=== PATIENT | female | born 1965 | race Caucasian/White ===

== ENCOUNTER 2017-09-26 21:45 | Emergency (ER) | payer OTHER, SELFPAY | END 2017-09-27 | disposition home or self-care (01) | PROVIDERS: Emergency Provider Emergency Medicine; Visit Provider Emergency Medicine | DX: T78.40XA Allergy, unspecified, initial encounter (principal) | CPT/HCPCS: 99282 ==

== ENCOUNTER → 2018-01-24 10:51 | Outpatient (CLI) | payer OTHER, SELFPAY ==
--- NOTE | 2018-01-24 | DI.MG.S_ITS ---
BILATERAL DIGITAL SCREENING MAMMOGRAM 3D/2D WITH CAD: 01/24/2018 CLINICAL: Routine screening. Family history of breast cancer. Comparison is made to exams dated: 05/07/2016 mammogram and 03/27/2015 mammogram - [facility]. There are scattered fibroglandular elements in both breasts. Current study was also evaluated with a Computer Aided Detection (CAD) system. There is an asymmetry in the left breast middle depth lateral region seen on the craniocaudal view only. There is possible architectural distortion associated with the asymmetry as seen on tomosynthesis slice 39/64 of the C view. No other significant masses, calcifications, or other findings are seen in either breast. IMPRESSION: INCOMPLETE: NEEDS ADDITIONAL IMAGING EVALUATION The asymmetry in the left breast is indeterminate. Additional views with possible ultrasound are recommended. This exam was interpreted at Station ID: [id number]. NOTE: For mammograms, a report in lay terms will be sent to the patient. Approximately 15% of breast malignancies will not be visualized mammographically. In the management of a palpable breast mass, a negative mammogram must not discourage biopsy of a clinically suspicious lesion. Electronically Signed By: Donis Hidalgo M.D. ecl/:01/25/2018 10:12:09 letter sent: Additional Imaging Needed ACR BI-RADS Category 0: Incomplete 3340F
== END ==
PROVIDERS: Visit Provider Nurse Practitioner Family
DX: Z12.31 Encounter for screening mammogram for malignant neoplasm of breast (principal); Z80.3 Family history of malignant neoplasm of breast
CPT/HCPCS: 77063; 77067

== ENCOUNTER → 2018-02-16 14:41 | Outpatient (CLI) | payer OTHER, SELFPAY ==
--- NOTE | 2018-02-16 | DI.MG.S_ITS ---
UNILATERAL LEFT DIGITAL DIAGNOSTIC MAMMOGRAM 3D/2D WITH ADDITIONAL VIEWS: 02/16/2018 CLINICAL: Additional evaluation requested from prior study. Comparison is made to exams dated: 01/24/2018 mammogram - [facility], 05/07/2016 mammogram, and 03/27/2015 mammogram - [facility]. There are scattered fibroglandular elements in the left breast. Previously identified asymmetry in the left breast middle depth lateral region seen on the craniocaudal view only of comparison screening mammograms persists with additional views. There is persistent possible architectural distortion associated with the asymmetry as seen on the [facility] spot tomosynthesis slice 36/56 of the [facility] view. No other significant masses, calcifications, or other findings are seen in the breast. Previously identified of comparison screening mammograms persists with additional views. IMPRESSION: INCOMPLETE: NEEDS ADDITIONAL IMAGING EVALUATION Previously identified asymmetry with possible architectural distortion in the left breast middle depth lateral region seen on the craniocaudal view only of comparison screening mammograms persists with additional views. A targeted ultrasound is recommended for further evaluation, and has been scheduled for February 20, 2018. The patient is aware of this appointment for follow-up ultrasound per the construction equipment technician. This exam was interpreted at Station ID: [id number]. NOTE: For mammograms, a report in lay terms will be sent to the patient. Approximately 15% of breast malignancies will not be visualized mammographically. In the management of a palpable breast mass, a negative mammogram must not discourage biopsy of a clinically suspicious lesion. Electronically Signed By: Donis Hidalgo M.D. ecl/:02/17/2018 06:44:02 Entry: - 02/17/2018 06:44:02 letter sent: Need Ultrasound ACR BI-RADS Category 0: Incomplete 3340F
== END ==
PROVIDERS: Visit Provider Nurse Practitioner Family
DX: R92.8 Other abnormal and inconclusive findings on diagnostic imaging of breast (principal)
CPT/HCPCS: 77065; G0279

== ENCOUNTER → 2018-02-20 15:41 | Outpatient (CLI) | payer OTHER, SELFPAY ==
--- NOTE | 2018-02-20 | DI.US.S_ITS ---
PROCEDURE: US BREAST LT LIMITED COMPARISON: None. INDICATIONS: ASYMMETRY LEFT BREAST INDETERMINATE FINDINGS: IMPRESSION: Dictated by: Donis Hidalgo M.D. on 02/20/2018 at 21:33 Approved by: Donis Hidalgo M.D. on 02/20/2018 at 21:37
== END ==
PROVIDERS: Visit Provider Nurse Practitioner Family
DX: R92.8 Other abnormal and inconclusive findings on diagnostic imaging of breast (principal)
CPT/HCPCS: 76642

== ENCOUNTER → 2019-02-16 15:16 | Outpatient (CLI) | payer OTHER, SELFPAY ==
--- NOTE | 2019-02-16 | DI.US.S_ITS ---
PROCEDURE: US PELVIC COMPLETE INDICATIONS: DYSFUNCTIONAL UTERINE BLEEDING TECHNIQUE: Real-time scanning was performed of the pelvic organs, with image documentation. Additional endovaginal scanning was necessary due to incomplete visualization of the adnexal and endometrial structures by transabdominal scanning. COMPARISON: None. FINDINGS: Transabdominal scanning: Limited scanning through the kidneys shows no hydronephrosis. No pathologic free abdominal or pelvic fluid. Endovaginal scanning: Uterus: Uterus is normal in size at 9.2 x 4.9 x 6.4 cm. The endometrium measures 15 mm in combined thickness. A portion of the anterior endometrium is not well-seen. Mild echogenic foci can be seen along the endometrial stripe, which may be related to calcification. Ovaries: The right ovary measures 3.4 x 1.7 x 2.1 cm and demonstrates the presence of a thick walled cyst that measures up to 2 cm. The left ovary measures 3.1 x 1.4 x 1.7 cm and demonstrates a thick walled cyst that measures up to 1.1 cm. No adnexal masses are seen. IMPRESSION: Bilateral thick walled ovarian cysts are seen, which are larger on the right side on the left. These may represent hemorrhagic cysts. At clinical discretion, a followup pelvic ultrasound is suggested in 6 weeks to assure resolution/ improvement. A portion of the endometrium is not well-seen on this patient. Likely endometrial calcification present. Dictated by: Colton Patel M.D. on 02/19/2019 at 10:56 Approved by: Colton Patel M.D. on 02/19/2019 at 10:59
== END ==
PROVIDERS: Visit Provider Nurse Practitioner Family
DX: N93.8 Other specified abnormal uterine and vaginal bleeding (principal); N83.202 Unspecified ovarian cyst, left side; N83.201 Unspecified ovarian cyst, right side
CPT/HCPCS: 76830; 76856

== ENCOUNTER → 2019-04-27 07:41 | Outpatient (CLI) | payer OTHER, SELFPAY ==
--- NOTE | 2019-04-27 | DI.US.S_ITS ---
PROCEDURE: US PELVIC COMPLETE INDICATIONS: EXCESSIVE BLEEDING IN THE PREMENOPAUSAL PERIOD TECHNIQUE: Real-time scanning was performed of the pelvic organs, with image documentation. Additional endovaginal scanning was necessary due to incomplete visualization of the adnexal and endometrial structures by transabdominal scanning. COMPARISON: [facility], , US PELVIC COMPLETE, 02/16/2019, 15:41. FINDINGS: Transabdominal scanning: Limited scanning through the kidneys shows no hydronephrosis. No pathologic free abdominal or pelvic fluid. Endovaginal scanning: Uterus: Uterus is normal in size at 9.2 x 4.6 x 6.3 cm. The endometrium measures 8 mm in combined thickness. section scar is noted in the anterior lower uterine segment. Previously described calcifications within endometrium is not appreciated on the current study. No gross endometrial mass or fluid. Ovaries: Right ovary measures 2.3 x 1.7 x 1.3 cm in size and is within normal limits. Previously described cystic area in right ovary is no longer seen. Left ovary measures 3.6 x 1.9 x 2.2 cm in size. Dominant thick walled cystic structure with low-level internal echo is noted in left ovary and measures 2.1 x 2.1 x 2.1 cm in size and may represent a complex cyst versus hemorrhagic cyst. IMPRESSION: 1. No gross endometrial fluid is seen study. 2. Previously noted right ovarian cystic structure is seen. 3. Previously described left ovary and 1.1 cm cystic structure now measures 2.1 cm in size with low-level internal echo which may represent hemorrhagic cysts or complex cysts. No gross solid ovarian lesion. Dictated by: Sabino Charles M.D. on 04/27/2019 at 12:46 Approved by: Sabino Charles M.D. on 04/27/2019 at 12:49
== END ==
PROVIDERS: Family Provider Nurse Practitioner Family; PCP Nurse Practitioner Family; Visit Provider Student in an Organized Health Care Education/Training Program
DX: N92.4 Excessive bleeding in the premenopausal period (principal); N83.202 Unspecified ovarian cyst, left side
CPT/HCPCS: 76830; 76856

== ENCOUNTER → 2019-07-31 16:14 | Outpatient (CLI) | payer OTHER, SELFPAY ==
--- NOTE | 2019-07-31 | DI.US.S_ITS ---
PROCEDURE: US PELVIC COMPLETE INDICATIONS: EXCESSIVE BLEEDING IN THE PREMENOPAUSAL PERIOD TECHNIQUE: Real-time scanning was performed of the pelvic organs, with image documentation. Additional endovaginal scanning was necessary due to incomplete visualization of the adnexal and endometrial structures by transabdominal scanning. COMPARISON: None. FINDINGS: Transabdominal scanning: Limited scanning through the kidneys shows no hydronephrosis. No pathologic free abdominal or pelvic fluid. Endovaginal scanning: Uterus: Uterus is normal in size at 8.2 x 4.1 x 4.7 cm. The endometrium measures 4.2 mm in combined thickness. Ovaries: Ovaries are normal bilaterally. No ovarian cysts visualized. IMPRESSION: Normal appearance of the ovaries and prior ovarian cysts no longer visible. Dictated by: Yury FORD Interpreted: Hina Tom MD on 07/31/2019 at 17:00 Approved by: Hina Tom M.D. on 07/31/2019 at 17:14
== END ==
PROVIDERS: Family Provider Nurse Practitioner Family; PCP Nurse Practitioner Family; Referring Provider Nurse Practitioner Family; Visit Provider Student in an Organized Health Care Education/Training Program
DX: N92.4 Excessive bleeding in the premenopausal period (principal)
CPT/HCPCS: 76830; 76856

== ENCOUNTER → 2019-12-10 16:42 | Outpatient (CLI) | payer OTHER, SELFPAY ==
--- NOTE | 2019-12-10 16:52 | DI.MG.S_ITS ---
Patient Name: ELIEZER DONIS date: 1965 Sex: F Attending Physician: Galo Indications: Date: 12/10/2019 16:46 At the request of: MARY PIMENTEL Procedure: MM screening mammo BI BILATERAL DIGITAL SCREENING MAMMOGRAM 3D/2D WITH CAD: 12/10/2019 CLINICAL: Routine screening. Family history of breast cancer. Comparison is made to exams dated: 02/16/2018 mammogram, 01/24/2018 mammogram - [facility], 05/07/2016 mammogram, and 03/27/2015 mammogram - [facility]. There are scattered fibroglandular elements in both breasts. Current study was also evaluated with a Computer Aided Detection (CAD) system. No significant masses, calcifications, or other findings are seen in either breast. There has been no significant interval change. IMPRESSION: NEGATIVE There is no mammographic evidence of malignancy. A 1 year screening mammogram is recommended. This exam was interpreted at Station ID: [id number]. NOTE: For mammograms, a report in lay terms will be sent to the patient. Approximately 15% of breast malignancies will not be visualized mammographically. In the management of a palpable breast mass, a negative mammogram must not discourage biopsy of a clinically suspicious lesion. Electronically Signed By: Mark Prater M.D., jr/alfred:12/10/2019 16:58:17 letter sent: Normal Exam ACR BI-RADS Category 1: Negative 3341F
== END ==
PROVIDERS: Family Provider Nurse Practitioner Family; PCP Nurse Practitioner Family; Referring Provider Nurse Practitioner Family; Visit Provider Nurse Practitioner Family
DX: Z12.31 Encounter for screening mammogram for malignant neoplasm of breast (principal); Z80.3 Family history of malignant neoplasm of breast
CPT/HCPCS: 77063; 77067

== ENCOUNTER → 2020-03-07 07:08 | Outpatient (CLI) | payer OTHER, SELFPAY ==
[2020-03-07 07:32] LABS: Hematocrit 39.5 % (36-46); Hemoglobin 13.2 g/dL (12.0-16.0); Mean Corpuscular HGB Conc 33.5 % (30-36); Mean Corpuscular Hemoglobin 28.1 PG (26-34); Platelet Count 334 X10^3/uL (150-400); Red Blood Cell Count 4.71 X10^6/uL (4.0-5.2); Red Cell Distribution Width 16.1 % (11.6-14.8); White Blood Cell Count 5.5 X10^3/uL (4.5-11.0)
[2020-03-07 08:10] LABS: Cholesterol 224 mg/dL (140-199); HDL Cholesterol 73 mg/dL (40-60); LDL Cholesterol Calculated 126 mg/dL (<100); Triglycerides 123 mg/dL (35-150)
[2020-03-07 08:46] LABS: Ferritin 17 ng/mL (11-264)
== END ==
PROVIDERS: Family Provider Nurse Practitioner Family; PCP Nurse Practitioner Family; Referring Provider Naturopath; Visit Provider Naturopath
DX: D64.9 Anemia, unspecified (principal); E78.5 Hyperlipidemia, unspecified
CPT/HCPCS: 36415; 80061; 82728; 85027

== ENCOUNTER → 2020-12-24 07:43 | Outpatient (CLI) | payer OTHER, SELFPAY ==
[2020-12-24 09:19] LABS: Thyroid Stimulating Hormone 3.41 uIU/mL (0.47-4.68)
== END ==
PROVIDERS: Family Provider Nurse Practitioner Family; PCP Nurse Practitioner Family; Referring Provider Nurse Practitioner Family; Visit Provider Nurse Practitioner Family
DX: E03.9 Hypothyroidism, unspecified (principal)
CPT/HCPCS: 36415; 84443

== ENCOUNTER → 2021-04-23 14:43 | Outpatient (CLI) | payer OTHER, SELFPAY ==
--- NOTE | 2021-04-23 | DI.MG.S_ITS ---
BILATERAL DIGITAL SCREENING MAMMOGRAM 3D/2D WITH CAD: 04/23/2021 CLINICAL: Routine screening. Family history of breast cancer. Comparison is made to exams dated: 12/10/2019 mammogram, 02/16/2018 mammogram, 01/24/2018 mammogram - [facility], and 05/07/2016 mammogram - [facility]. There are scattered fibroglandular elements in both breasts. Current study was also evaluated with a Computer Aided Detection (CAD) system. There is a biopsy clip in the left breast. No significant masses, calcifications, or other findings are seen in either breast. There has been no significant interval change. IMPRESSION: NEGATIVE There is no mammographic evidence of malignancy. A 1 year screening mammogram is recommended. This exam was interpreted at Station ID: [id number]. NOTE: For mammograms, a report in lay terms will be sent to the patient. Approximately 15% of breast malignancies will not be visualized mammographically. In the management of a palpable breast mass, a negative mammogram must not discourage biopsy of a clinically suspicious lesion. Electronically Signed By: Sukhi galicia/alfred:04/23/2021 15:42:08 letter sent: Normal Exam ACR BI-RADS Category 1: Negative 3341F
== END ==
PROVIDERS: Family Provider Nurse Practitioner Family; PCP Nurse Practitioner Family; Referring Provider Nurse Practitioner Family; Visit Provider Nurse Practitioner Family
DX: Z12.31 Encounter for screening mammogram for malignant neoplasm of breast (principal); Z80.3 Family history of malignant neoplasm of breast
CPT/HCPCS: 77063; 77067

== ENCOUNTER → 2021-04-24 13:40 | Outpatient (ROUT) | payer OTHER, SELFPAY ==
[2021-04-25 10:17] LABS: Appearance Urine UA CLEAR; Bilirubin Urine UA NEGATIVE (NEGATIVE); Color Urine UA YELLOW; Glucose Urine UA NEGATIVE (Negative); Ketones Urine UA NEGATIVE (NEGATIVE); Leukocyte Esterase Urine UA NEGATIVE (NEGATIVE); Nitrite Urine UA NEGATIVE (Negative); Occult Blood Urine UA NEGATIVE (Negative); Protein Urine UA NEGATIVE (Negative); Specific Gravity Urine UA <=1.005 (1.000-1.035); Urobilinogen Urine UA 0.2 E.U./dL (0.2)
[2021-04-25 10:21] LABS: Bacteria Urine None Seen; Culture Indicated Urine Cult Not Indicated; RBC Urine None Seen (0-5/HPF); Urine Comments Microscopic Normal; WBC Urine None Seen (0-5/HPF)
== END ==
PROVIDERS: Family Provider Nurse Practitioner Family; PCP Nurse Practitioner Family; Visit Provider Naturopath
DX: N30.90 Cystitis, unspecified without hematuria (principal)
CPT/HCPCS: 81001; 87086

== ENCOUNTER → 2022-07-28 08:04 | Outpatient (CLI) | payer OTHER, SELFPAY ==
--- NOTE | 2022-07-28 08:19 | DI.MG.S_ITS ---
At the request of: MARY PIMENTEL Procedure: MM screening mammo BI BILATERAL DIGITAL SCREENING MAMMOGRAM 3D/2D WITH CAD: 07/28/2022 CLINICAL: Routine screening. Family history of breast cancer. Comparison is made to exams dated: 04/23/2021 mammogram, 12/10/2019 mammogram, and 01/24/2018 mammogram - [facility]. There are scattered areas of fibroglandular density in both breasts (category b / 25%-50% glandular tissue). Current study was also evaluated with a Computer Aided Detection (CAD) system. There is a biopsy clip in the left breast. No significant masses, calcifications, or other findings are seen in either breast. There has been no significant interval change. IMPRESSION: NEGATIVE There is no mammographic evidence of malignancy. A 1 year screening mammogram is recommended. This exam was interpreted at Station ID: [id number]. NOTE: For mammograms, a report in lay terms will be sent to the patient. Approximately 15% of breast malignancies will not be visualized mammographically. In the management of a palpable breast mass, a negative mammogram must not discourage biopsy of a clinically suspicious lesion. Electronically Signed By: Sukhi Ko M.D. Continued Report - Page 2 of 2 Patient Name: ELIEZER DONIS date: 1965 Sex: F Attending Physician: Galo Indications: Date: 07/28/2022 08:25 At the request of: MARY PIMENTEL Procedure: MM screening mammo BI aty/penrad:07/28/2022 08:25:25 letter sent: Normal Exam ACR BI-RADS Category 1: Negative 3341F
== END ==
PROVIDERS: Family Provider Nurse Practitioner Family; PCP Nurse Practitioner Family; Referring Provider Nurse Practitioner Family; Visit Provider Nurse Practitioner Family
DX: Z12.31 Encounter for screening mammogram for malignant neoplasm of breast (principal); Z80.3 Family history of malignant neoplasm of breast
CPT/HCPCS: 77063; 77067

== ENCOUNTER 2023-05-24 11:29 | Emergency (ER) | payer OTHER, SELFPAY ==
[2023-05-24 11:52] VITALS: BP 152/74; PULSE 63; RESP 16; TEMP 36.6; O2SAT 98; BMI 22.4
[2023-05-24 12:45] VITALS: BP 138/75; PULSE 65; RESP 18; O2SAT 98
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
== END 2023-05-24 13:33 | disposition home or self-care (01) ==
PROVIDERS: Emergency Provider Physician Assistant; Family Provider Nurse Practitioner Family; PCP Nurse Practitioner Family
DX: S06.0X0A Concussion without loss of consciousness, initial encounter (principal); V89.2XXA Person injured in unspecified motor-vehicle accident, traffic, initial encounter
CPT/HCPCS: 99281

== ENCOUNTER → 2023-07-29 14:23 | Outpatient (CLI) | payer OTHER, SELFPAY ==
--- NOTE | 2023-07-29 | DI.MG.S_ITS ---
BILATERAL DIGITAL SCREENING MAMMOGRAM 3D/2D WITH CAD: 07/29/2023 CLINICAL: Routine screening. Family history of breast cancer. Comparison is made to exams dated: 07/28/2022 mammogram, 04/23/2021 mammogram, and 12/10/2019 mammogram - [facility]. There are scattered areas of fibroglandular density in both breasts (category b / 25%-50% glandular tissue). Current study was also evaluated with a Computer Aided Detection (CAD) system. There is a biopsy clip in the left breast. No significant masses, calcifications, or other findings are seen in either breast. There has been no significant interval change. IMPRESSION: NEGATIVE There is no mammographic evidence of malignancy. A 1 year screening mammogram is recommended. Based on the Tyrer Cuzick model (a risk assessment model) the patient's lifetime risk is 16.8% and her 10 year risk is 5.6%. According to the ACR, ACS, and NCCN guidelines, an annual breast MRI exam along with mammogram is recommended if the patient's lifetime risk is 20% or greater. This exam was interpreted at Station ID: [id number]. NOTE: For mammograms, a report in lay terms will be sent to the patient. Approximately 15% of breast malignancies will not be visualized mammographically. In the management of a palpable breast mass, a negative mammogram must not discourage biopsy of a clinically suspicious lesion. Electronically Signed By: Parth partida/alfred:07/29/2023 20:48:55 letter sent: Normal Exam ACR BI-RADS Category 1: Negative 3341F
== END ==
PROVIDERS: Family Provider Nurse Practitioner Family; PCP Nurse Practitioner Family; Referring Provider Nurse Practitioner Family; Visit Provider Nurse Practitioner Family
DX: Z12.31 Encounter for screening mammogram for malignant neoplasm of breast (principal); Z80.3 Family history of malignant neoplasm of breast; R92.323 Mammographic fibroglandular density, bilateral breasts
CPT/HCPCS: 77063; 77067

== ENCOUNTER → 2024-03-06 07:42 | Outpatient (CLI) | payer OTHER, SELFPAY ==
[2024-03-06 08:23] LABS: Add Manual Diff / Slide Review NO; Basophils Absolute Auto 0 /uL (0-100); Basophils Percent Auto 0.4 % (0-2); Eosinophils Absolute Auto 300 /uL (0-450); Eosinophils Percent Auto 5.6 % (2-4); Hematocrit 39.5 % (36-46); Hemoglobin 13.3 g/dL (12.0-16.0); Lymphocytes Absolute Auto 1800 /uL (1100-4500); Lymphocytes Percent Auto 34.6 % (25-40); Mean Corpuscular HGB Conc 33.8 % (30-36); Mean Corpuscular Hemoglobin 29.4 PG (26-34); Mean Corpuscular Volume 86.9 fL (80-100); Monocytes Absolute Auto 400 /uL (0-900); Monocytes Percent Auto 8.2 % (3-14); Neutrophils Absolute Auto 2700 /uL (1500-7000); Neutrophils Percent Auto 51.2 % (50-75); Platelet Count 338 X10^3/uL (150-400); Red Blood Cell Count 4.55 X10^6/uL (4.0-5.2); Red Cell Distribution Width 13.7 % (11.6-14.8); White Blood Cell Count 5.2 X10^3/uL (4.5-11.0)
[2024-03-06 08:45] LABS: Alanine Aminotransferase 13 IU/L (<35); Albumin 4.2 g/dL (3.5-5.0); Albumin Globulin Ratio 1.6 (1.0-2.8); Alkaline Phosphatase 54 U/L (38-126); Aspartate Aminotransferase 19 IU/L (14-36); BUN Creatinine Ratio 15.8 (6-22); Bilirubin Total 0.4 mg/dL (0.2-1.3); Blood Urea Nitrogen 15 mg/dL (7-17); Calcium 9.4 mg/dL (8.4-10.2); Carbon Dioxide 27 mmol/L (22-32); Chloride 104 mmol/L (98-107); Cholesterol 256 mg/dL (140-199); Estimated Glomerular Filt Rate > 60 mL/min (>60); Globulin 2.6 g/dL (1.7-4.1); Glucose 112 mg/dL (70-100); HDL Cholesterol 91 mg/dL (40-60); HEMOLYSIS < 15 (0-50); LDL Cholesterol Calculated 150 mg/dL (<100); Potassium 5.1 mmol/L (3.4-5.1); Sodium 135 mmol/L (137-145); Total Protein 6.8 g/dL (6.3-8.2); Triglycerides 77 mg/dL (35-150)
[2024-03-06 08:57] LABS: Free T3, Triiodothyronine Free 3.43 pg/mL (2.77-5.27); Free T4, Direct Thyroxine 1.28 ng/dL (0.78-2.19)
[2024-03-06 09:00] LABS: Follicle Stimulating Hormone 39.7 mIU/mL; Luteinizing Hormone 17.3 mIU/mL
[2024-03-06 09:11] LABS: Thyroid Stimulating Hormone 2.37 uIU/mL (0.47-4.68)
[2024-03-06 09:19] LABS: Ferritin 41 ng/mL (11-264)
== END ==
PROVIDERS: Family Provider Nurse Practitioner Family; PCP Naturopath; Referring Provider Naturopath; Visit Provider Naturopath
DX: Z00.00 Encounter for general adult medical examination without abnormal findings (principal); E61.1 Iron deficiency; E03.9 Hypothyroidism, unspecified; N39.9 Disorder of urinary system, unspecified
CPT/HCPCS: 36415; 80053; 80061; 82728; 83001; 83002; 84439; 84443; 84481; 85025

== ENCOUNTER → 2024-03-09 13:59 | Outpatient (CLI) | payer OTHER, SELFPAY ==
--- NOTE | 2024-03-09 14:00 | DI.US.S_ITS ---
PROCEDURE: US PELVIC COMPLETE INDICATIONS: ABNORMAL UTERINE BLEEDING TECHNIQUE: Real-time scanning was performed of the pelvic organs, with image documentation. Additional endovaginal scanning was necessary due to incomplete visualization of the adnexal and endometrial structures by transabdominal scanning. COMPARISON: [facility], , US PELVIC COMPLETE, 07/31/2019, 16:32. FINDINGS: Uterus: Uterus is anteverted and normal in size at 9 x 4.9 x 6.6 cm. The myometrium is homogeneous. The endometrium measures 9 mm combined thickness. No abnormal vascularity can be seen along the endometrial stripe. Ovaries: The right ovary measures 1.1 x 2 x 1.2 cm, with a volume of 1.4 cc. The left ovary is not seen. No adnexal masses are seen on either side. Other: No pathologic free abdominal or pelvic fluid. IMPRESSION: No imaging explanation is found for this patient's presenting symptoms. Normal appearing endometrial stripe, without abnormal vascularity. Left ovary not seen. We strive to produce accurate, complete, and clear reports of imaging services. To assist us in improving patient care, this report was composed using standard report templates and voice recognition software. Therefore, it may contain abnormal punctuation, insertions and/or omissions. Occasional wrong-word or sound-alike substitutions may occur. Though we review the report and make efforts to correct it, we do recommend that the report be read carefully in proper context to recognize any text inaccuracies. Dictated by: Colton Patel M.D. on 03/09/2024 at 16:18 Approved by: Colton Patel M.D. on 03/09/2024 at 16:19
== END ==
PROVIDERS: Family Provider Nurse Practitioner Family; PCP Naturopath; Referring Provider Naturopath; Visit Provider Naturopath
DX: N95.0 Postmenopausal bleeding (principal)
CPT/HCPCS: 76830; 76856

== ENCOUNTER 2024-04-09 12:02 | Day surgery (SDC) | payer OTHER, SELFPAY ==
[2024-04-05 09:18] VITALS: BMI 23.8
--- NOTE | 2024-04-09 | PATH_ITS ---
[facility] Accession Number: [id number] No. of containers..01 Tissue . 01 Material submitted: . endometrium - ENDOMETRIAL CURETTINGS . 01 Diagnosis: ENDOMETRIUM, CURETTINGS: Weakly proliferative to inactive endometrium. Fragment with features suggestive of polyp, if imaging studies support. Negative for atypia, hyperplasia, and malignancy. [facility] 04/10/2024 1103 Local . 01 Electronically signed: . Evangelist Prater MD, Pathologist NPI- [id number] . 01 Gross description: . ENDOMETRIAL CURETTINGS: Received in formalin are minute fragments of mucoid and hemorrhagic material measuring 2.0 x 2.0 x 0.2 cm in aggregate. Submitted in toto in 1 cassette. /EVANGELINA 04/10/2024 0109 Local . 01 Pathologist provided ICD-10: N93.9 . 01 CPT . 434896 Specimen Comment: A courtesy copy of this report has been sent to [facility] Pathology Performed at: [address] [address], [place], [place] [id number] MD Zohaib Paredes MD Phone: [phone]
[2024-04-09 12:30] VITALS: BP 137/76; PULSE 69; RESP 18; TEMP 36.6; O2SAT 99
[2024-04-09 12:32] VITALS: BMI 21.2
[2024-04-09] MEDS: LACTATED RINGERS 1,000 ML 42 ML IV (12:51)
[2024-04-09] MEDS: ACETAMINOPHEN IV 1,000 MG/100 ML VIAL 400 MG IV (12:57)
[2024-04-09] MEDS: SCOPOLAMINE 1 PATCH TOP (12:57)
--- NOTE | 2024-04-09 13:23 | PM.PREOP ---
Pre-operative Note Interval Note History & Physical reviewed/Exam performed by Physician: Yes Changes to H&P: No ASA Class (for procedural sedation): II
--- NOTE | 2024-04-09 13:56 | SUR.OPER ---
Lithotomy on padded OR bed, head on pillow, arms secured on padded arm boards at <90 degrees abduction. Legs secured in padded yellow fins stirrups.
--- NOTE | 2024-04-09 14:12 | P.OP_ITS ---
Operative Date/Time/Diagnoses Date of procedure: 04/09/24 Time of procedure: 14:12 Pre-op diagnosis: postmenopausal bleeding Post-op diagnosis: same Procedure & Clinicians Procedure: hysteroscopy, dilation and curettage, placement of levonorgestrel (mirena) IUD Same procedure as scheduled: Yes Indications: postmenopausal bleeding, desired continuation of hormone replacement therapy with indication for endometrial protection/prophylaxis Surgeon: Yasmine Henry Click Yes if Unassisted: Yes Anesthesia Type: General Operative Notes Findings: normal external female genitalia, perineum and anus without rash or lesion urethral meatus wnl, parous cervix visually wnl intrauterine cavity visualized without appreciable polyp, noted anterior fibroid with <10% incursion into endometrium and not amenable to resection; bilateral ostia visualized Closure Type: not applicable Specimen(s): other (endometrial curettings ) Estimated Blood Loss (mL): 5 Blood products transfused: none Procedure in detail: Pt was taken to the operating room, transferred to OR table and anesthesia was induced with placement of LMA.? Pt had her legs placed in [place] stirrups and an exam under anesthesia was performed. The patient was prepped and draped in a sterile fashion.? A time out was performed. ?The bladder was emptied via straight catheter in sterile fashion.? A sterile speculum was inserted into the vagina.? The cervix was visualized and grasped anteriorly using a single tooth tenaculum.? The uterus sounded to 7.5 cm and the cervical os was serially dilated using Lopez dilators up to 17f to allow for passage of the hysteroscope.? The 5mm 0 degree hysteroscope was then inserted into the uterus with findings as noted.? The hysteroscope was removed and the uterus was sharply curetted until a gritty texture was noted throughout.? The mirena IUD obtained from [employer] [SN [id number] Exp Lot [id number]] was placed per custom shoe designer and maker instructions, strings trimmed to 3cm. The tenaculum was removed and hemostasis was noted at insertion sites.? The speculum was removed and hemostasis was again noted to be excellent.? The patient then had her legs taken out of stirrups.? The patient tolerated the procedure well and without difficulty.? The patient was awakened from anesthesia and taken to PACU in stable condition. Complications: none Post-operative Condition: stable Disposition: PACU Plan for aftercare: anticipate dc to home, routine outpatient f/u as scheduled
[2024-04-09 14:16] VITALS: BP 128/60; PULSE 85; RESP 16; TEMP 36.2; O2SAT 98
[2024-04-09 14:20] VITALS: BP 119/69; PULSE 76; RESP 17; O2SAT 97
[2024-04-09 14:30] VITALS: BP 146/73; PULSE 71; RESP 16; TEMP 36.2; O2SAT 98
[2024-04-09 14:35] VITALS: BP 136/66; PULSE 68; RESP 16; TEMP 36.2; O2SAT 98
[2024-04-09 14:43] VITALS: BP 131/70; PULSE 66; RESP 16; TEMP 36.2; O2SAT 98
[2024-04-09] MEDS: OXYCODONE IR 5 MG TABLET PO (14:54)
== END 2024-04-09 15:22 | disposition home or self-care (01) ==
PROVIDERS: Family Provider Nurse Practitioner Family; PCP Naturopath; Referring Provider Obstetrics & Gynecology; Visit Provider Obstetrics & Gynecology
PROC: 0UDB8ZZ Extraction of Endometrium, Via Natural or Artificial Opening Endoscopic (ICD-10-PCS; CPT 58558; principal; 2024-04-09 13:45)
DX: N93.9 Abnormal uterine and vaginal bleeding, unspecified (principal); Z30.430 Encounter for insertion of intrauterine contraceptive device; D25.9 Leiomyoma of uterus, unspecified
CPT/HCPCS: 58300; 58558; J7298; J0134; J1885; J2405

== ENCOUNTER → 2024-09-13 08:20 | Outpatient (CLI) | payer OTHER, SELFPAY ==
--- NOTE | 2024-09-13 08:22 | DI.MG.S_ITS ---
MM screening mammo BI: 09/13/2024. BI-RADS: 2 CLINICAL: 59-year old female for bilateral screening mammogram. Tyrer-Cuzick lifetime risk of 14.7%. Current reported family history of breast cancer: mother. The patient had a prior left breast biopsy. PRIOR EXAMS 07/29/2023, 07/28/2022, 04/23/2021, 12/10/2019, 03/01/2018, 02/20/2018, 02/16/2018, 01/24/2018, 05/07/2016, 03/27/2015. MAMMOGRAPHY TECHNIQUE: 2D and 3D (tomosynthesis) digital mammographic views obtained, with additional images as needed for full coverage. Current study was also evaluated with a Computer Aided Detection (CAD) system. DENSITY B. There are scattered areas of fibroglandular density. MAMMOGRAPHY FINDINGS Right: No suspicious mass, asymmetry, microcalcification, or other abnormality seen. No significant change from comparison. Left: Biopsy marker present on the left. There are no suspicious masses, calcifications, or other findings in the breast. No significant change from comparison. IMPRESSION: Right * No evidence of malignancy. Left * No evidence of malignancy with benign findings. RECOMMENDATIONS Bilateral * Annual screening mammography. OVERALL ASSESSMENT CATEGORY BI-RADS-2: Benign. The [employer] recommends annual screening mammography beginning at age 40 for women with average risk of breast cancer. ELECTRONICALLY SIGNED: Haley Licona M.D. on 09/13/2024 at 12:04:38 PM PT Interpreting Station ID: [id number]
== END ==
PROVIDERS: Family Provider Nurse Practitioner Family; PCP Naturopath; Referring Provider Naturopath; Visit Provider Naturopath
DX: Z12.31 Encounter for screening mammogram for malignant neoplasm of breast (principal); Z80.3 Family history of malignant neoplasm of breast
CPT/HCPCS: 77063; 77067

== ENCOUNTER → 2025-05-09 08:03 | Outpatient (CLI) | payer OTHER, SELFPAY ==
[2025-05-09 08:34] LABS: Add Manual Diff / Slide Review NO; Hematocrit 41.1 % (36-46); Hemoglobin 14.0 g/dL (12.0-16.0); Lymphocytes Absolute Auto 1700 /uL (1100-4500); Mean Corpuscular HGB Conc 34.0 % (30-36); Mean Corpuscular Hemoglobin 29.2 PG (26-34); Mean Corpuscular Volume 86.1 fL (80-100); Platelet Count 326 X10^3/uL (150-400)
[2025-05-09 08:44] LABS: Hemoglobin A1C% w Est Avg Glu 5.3 % (4.0-6.0)
[2025-05-09 09:15] LABS: Alanine Aminotransferase 13 IU/L (<35); Albumin 4.3 g/dL (3.5-5.0); Albumin Globulin Ratio 1.7 (1.0-2.8); Alkaline Phosphatase 55 U/L (38-126); Blood Urea Nitrogen 18 mg/dL (7-17); Calcium 9.3 mg/dL (8.4-10.2); Carbon Dioxide 25 mmol/L (22-32); Chloride 106 mmol/L (98-107); Cholesterol 237 mg/dL (140-199); Estimated Glomerular Filt Rate > 60 mL/min (>60); Globulin 2.5 g/dL (1.7-4.1); Glucose 97 mg/dL (70-99); HDL Cholesterol 82 mg/dL (40-60); HEMOLYSIS < 15 (0-50); Potassium 4.7 mmol/L (3.4-5.1); Sodium 138 mmol/L (137-145); Total Protein 6.8 g/dL (6.3-8.2); Triglycerides 80 mg/dL (35-150)
[2025-05-09 09:32] LABS: Free T3, Triiodothyronine Free 2.97 pg/mL (2.77-5.27); Free T4, Direct Thyroxine 1.14 ng/dL (0.78-2.19)
[2025-05-09 09:45] LABS: Thyroid Stimulating Hormone 5.39 uIU/mL (0.47-4.68)
== END ==
PROVIDERS: Family Provider Nurse Practitioner Family; PCP Naturopath; Referring Provider Naturopath; Visit Provider Naturopath
DX: Z00.00 Encounter for general adult medical examination without abnormal findings (principal); E03.9 Hypothyroidism, unspecified; R73.03 Prediabetes
CPT/HCPCS: 36415; 80053; 80061; 83036; 83695; 84439; 84443; 84481; 85025